=== PATIENT | male | born 1950 | race Caucasian/White ===

== ENCOUNTER → 2017-04-07 | Outpatient (CLI) | payer MEDICARE ==
[~2017-04-07] MED LIST: ASA325 MG PO; CENTRUM MEN'S1 EACH PO; LIPITOR DPS10 MG PO; MILK OF MAGNESI10 ML PO; MIRALAX PACKET17 GM PO; MOBIC15 MG PO; OXY IR DPS5 MG PO; PROTONIX40 MG PO; SENOKOT DPS8.6 MG PO; TYLENOL ARTHRI650 MG PO; ULTRAM DPS50 MG PO
== END | disposition home or self-care (01) ==
LOC: PTH.S 08:01
DX: Z01.818 Encounter for other preprocedural examination (principal); E78.5 Hyperlipidemia, unspecified

== ENCOUNTER 2017-04-15 05:39 | Inpatient (IN) | payer MEDICARE ==
[~2017-04-15] VITALS: Ht 177.8 cm; Wt 86.0 kg
--- NOTE | ~2017-04-15 | HP ---
ADMIT: 04/15/2017 RM/LOC: W.01 [facility] MR#: [id number] [address] [address] PAN [address] [place] [address] Pre-OP History and Physical SEX: M AGE: 66 : 1950 DATE OF SERVICE: CHIEF COMPLAINT: Hip pain. HISTORY OF PRESENT ILLNESS: The patient is a 66-year-old male with long- standing history of right hip pain. His hips limit his activities. He has failed conservative care, now is being admitted for right total hip arthroplasty. PAST MEDICAL HISTORY: Past medical problems include coronary artery disease. PAST SURGICAL HISTORY: Include knee arthroscopy, tonsillectomy, back surgery. MEDICATIONS: Include: 1. Aspirin. 2. Mobic. 3. Tylenol. 4. Centrum. ALLERGIES: NONE. SOCIAL HISTORY: Denies any significant tobacco or alcohol use. REVIEW OF SYSTEMS: Negative. PHYSICAL EXAMINATION: Healthy-appearing male, walks with severe antalgic gait. He has a fairly stiff right hip. We can internally rotate to 0, externally rotate to 30, flex to 100. Legs are otherwise neurovascularly intact. No back pain. DIAGNOSTIC DATA: X-rays AP and lateral show advanced right hip arthritis. No joint space remaining. IMPRESSION: Advanced right hip degenerative joint disease. PLAN: At this point, he has failed conservative care. Plan on proceeding with a right anterior total hip arthroplasty. He is aware of risk, benefits, and options and agreed to proceed. He has been seen and cleared from a medical standpoint. Siddhartha Sánchez MD/ hesham JOB #: [id number] CC: Siddhartha Sánchez, Attending Physician UNKNOWN, Family Physician
--- NOTE | 2017-04-15 21:16 | OR ---
ADMIT: 04/15/2017 RM/LOC: 518 [facility] MR#: [id number] [address] [address] PAN [address] [place] [address] Operative/Delivery Room Report SEX: M AGE: 66 : 1950 SURGERY DATE: 04/15/2017 SURGEON: Siddhartha Sánchez MD PREOPERATIVE DIAGNOSIS: Right hip degenerative joint disease. POSTOPERATIVE DIAGNOSIS: Right hip degenerative joint disease. PROCEDURES: 1. Right anterior total hip arthroplasty. 2. Application of 2 cables. 3. Intra-articular block. TRUCK DRIVER HEAVY: Iván Fontana PA-C. ANESTHESIA: Spinal. BLOOD LOSS: 1000 mL. COMPLICATION: Calcar fracture. COMPONENTS: 1. A 14-mm standard offset Corail stem. 2. A 60 mm Gription [place] cup. 3. A 36-mm neutral AltrX liner. 4. 8.5 x 36 mm ceramic head. DESCRIPTION OF PROCEDURE: The patient was taken to the operating room and received a spinal anesthetic. The patient was placed on a hand table, perfect AP pelvis was obtained preop templating. At that point, the right hip was prepped and draped in standard fashion. Anterior approach was made. Dissection carried through subcutaneous tissue. We divided the tensor fascia and then retracted tensor posteriorly. We then identified the vastus, identified the lateral circumflex vessels and placed a ligature suture around these and I cauterized them. At that point, we released the rectus off the anterior hip capsule. At that point, we did an anterior capsulotomy revealing the femoral neck. We externally rotated the leg. There is complete capsular release inferiorly, internally rotated the leg and released the capsule off the superior trochanter. At that point, we made a preliminary femoral neck cut based on templating. We were to able to remove the femoral head. We then externally rotated the leg and finished our capsular release inferiorly and then internally rotated the leg and finished it release superiorly. At that point, we exposed the acetabulum, removed the remaining labrum. I did inferior capsular release. We sequentially reamed the acetabulum up to a 59 mm reamer. He was quite oozy throughout the acetabulum just having multiple areas of bleeding bone, so our blood loss was increased from normal. We impacted a 60 mm Gription [place] cup with an excellent press fit. No supplement screws were required. We then placed a 60 mm Gription [place] cup within the acetabulum brought in fluoroscopy, obtained a perfect AP of the hip. Using ADMIT: 04/15/2017 RM/LOC: 518 [facility] MR#: [id number] [id number] [place] [id number] PAN [address] [place] [address] Operative/Delivery Room Report SEX: M AGE: 66 : 1950 fluoroscopy, we put the acetabular component in perfect anteversion and inclination. We had an excellent press-fit, no supplemental screws required. At that point, we placed a 36 mm neutral liner. I did intraarticular block around the acetabulum. At that point, we removed all traction from the leg, placed a bone hook posteriorly, elevated the femur, external rotating the leg. We did a superior caps released off the greater trochanter. Released the piriformis tendon, preserving the internal rotators. At that point, we opened the femur with a [email or web address] cutter broach. I used a [employer] pepper broach to open the proximal femur. We then broached up to a 12 stem. At that point, it is little tight distally. We then reaming up to a 14.5 reamer and eventually placed a 14 mm Corail stem down with excellent press fit. At that point, we used a calcar planer. When we are using the calcar planer, the calcar planer caught on a spike bone on the calcar and ended up fracturing the calcar split distally. At that point, we removed our broach. We did extend our incision distally, had a little bit of vastus off the femur. We placed two cables around the lesser trochanter and calcar. Reapproximating it in an anatomic position with excellent stability. At that point, we replaced the 14 mm broach, reduced the hip with 8.5 head standard offset. At that point, x-rays confirmed excellent reduction of our calcar fracture. Good cable placement. We had appropriate leg length and offset. We then dislocated the hip, removed the trial components. We then impacted the real 14 mm Corail broach with an excellent press fit. The stem was very stable. We then impacted 8.5 x 36 mm ceramic head. Again reduced the hip. It was again found to be stable. AP x- rays confirmed good offset, good leg length, and appropriate fracture reduction. We then did complete our intraarticular block. We then repaired the anterior capsule with #5 Ti-Cron. I repaired the deep fascia with 0 Vicryl, subcutaneous with 2-0 Vicryl, placed a drain deeply. Closed the skin with the Prineo hip wound dressing after subcuticular stitch. He was taken to the recovery room in stable condition. No other complications. Siddhartha Sánchez MD/ hesham JOB #: [id number] CC: Siddhartha Sánchez, Attending Physician Shan Petersen, Family Physician
[2017-04-19] MEDS ORDERED: MOBIC15 MG PO (20:24)
[2017-04-19] MEDS ORDERED: CENTRUM MEN'S1 EACH PO (20:25)
[2017-04-19] MEDS ORDERED: ASA325 MG PO (20:25)
[2017-04-19] MEDS ORDERED: TYLENOL ARTHRI650 MG PO (20:25)
[2017-04-19] MEDS ORDERED: LIPITOR DPS10 MG PO (20:25)
[2017-04-19] MEDS ORDERED: SENOKOT DPS8.6 MG PO (20:26)
[2017-04-19] MEDS ORDERED: PROTONIX40 MG PO (20:26)
[2017-04-19] MEDS ORDERED: MILK OF MAGNESI10 ML PO (20:26)
[2017-04-19] MEDS ORDERED: MIRALAX PACKET17 GM PO (20:26)
[2017-04-19] MEDS ORDERED: OXY IR DPS5 MG PO (20:27)
[2017-04-19] MEDS ORDERED: ULTRAM DPS50 MG PO (20:27)
--- NOTE | 2017-05-07 16:15 | DS ---
ADMIT: 04/15/2017 RM/LOC: 518 [facility] MR#: [id number] [address] [place], [place] [address] PAN [address] [place] [address] General Discharge Summary SEX: M AGE: 66 : 1950 ADMISSION DATE: 04/15/2017 DISCHARGE DATE: 04/17/2017 REASON FOR ADMISSION: Elective right total hip arthroplasty after failing conservative management for osteoarthritis. PREOPERATIVE DIAGNOSIS: Right hip degenerative joint disease. POSTOPERATIVE DIAGNOSIS: Right hip degenerative joint disease. PROCEDURE PERFORMED: Right indirect anterior total hip arthroplasty with application of two cables. ANESTHETIC: Spinal. COMPLICATIONS: Calcar fracture. ESTIMATED BLOOD LOSS: 1000 mL. SURGEON: Siddhartha Sánchez MD. STOCK GRADER: Iván Fontana PA-C ACTIVE MEDICAL PROBLEMS: 1. Osteoarthritis. 2. Coronary artery disease. HOSPITAL COURSE: Pan was admitted on 04/15/2017 for elective right total hip arthroplasty, it was completed successfully from a direct anterior approach by Dr. Sánchez. There was a complication during the case, a fracture of the calcar which required 2 cables to be placed around the proximal femur. These cables were placed successfully and stabilized the fracture nicely. He was made partial weightbearing postoperatively due to that complication. He did have his pain well controlled postoperatively with the use of the intraoperative pain block cocktail as well as oral pain medications. He did participate well with physical therapy with his weightbearing restriction 50%. He had significant blood loss during the case, estimated to be 1000 mL. Upon admission to the medical floor on day of surgery, he did have what was likely a vasovagal hypotensive episode where he became somewhat unresponsive for a brief moment. Blood pressures were measured at 78/48, administered a 1 liter IV LR bolus, and ordered stat hemoglobin. He recovered nicely and was able to communicate, had no further episodes. Hemoglobin came back at 8.3. Aspirin protocol was initiated due to the blood loss for DVT prophylaxis. He was administered 1 unit of packed red cells due to his hypotensive episode. On postoperative day #1, he pulled his drain. Hemoglobin was stable at 8.2, after the 1 unit. He participated well with physical therapy becoming proficient with his home exercise program per anterior total hip arthroplasty protocol. His hospital course was otherwise unremarkable after, and he was stable and ready for discharge on postoperative day #2, with plans for ADMIT: 04/15/2017 RM/LOC: 518 [facility] MR#: [id number] [address] [address] [address] [place] [address] General Discharge Summary SEX: M AGE: 66 : 1950 outpatient home exercise therapy. Discharge hemoglobin was 8.2 and stabilized. DISCHARGE MEDICATIONS: 1. Aspirin 325 mg daily. 2. Lipitor 10 mg daily. 3. MiraLax p.r.n. 4. Protonix 40 mg daily while on aspirin. 5. Senokot b.i.d. p.r.n. 6. Ultram 50 mg, 1 to 2 q.6h daily x3 days, then p.r.n. 7. Tylenol 650 mg q.4h p.r.n. 8. OxyIR 5 mg, 1 to 2 q.4 p.r.n. 9. Milk of Mag p.r.n. DISCHARGE INSTRUCTIONS: Pan will participate in home exercise program per anterior total hip arthroplasty protocol, although he will be 50% weightbearing due to the calcar fracture. He will have weightbearing restriction for approximately four weeks. We will follow up with him in 1 week in the Orthopedic office for recheck and re-x-ray with Dr. Sánchez. Follow up in 2 weeks with wound check and removal of his Prineo dressing. He will follow up with Dr. Petersen in one week for recheck of his hemoglobin and his primary care needs. Iván Fontana PA-C / Siddhartha Sánchez MD / hesham JOB #: [id number] CC: Siddhartha Sánchez MD, Attending Physician Shan Petersen MD, Family Physician
== END 2017-04-17 16:12 | disposition home or self-care (01) | DRG 470 ==
LOC: WOR 05:39 → 5MS 05:39
PROVIDERS: ADMIT Orthopaedic Surgery
PROC: 0SR904A Replacement of Right Hip Joint with Ceramic on Polyethylene Synthetic Substitute, Uncemented, Open Approach (ICD-10-PCS; principal; 2017-04-15)
PROC: 30233N1 Transfusion of Nonautologous Red Blood Cells into Peripheral Vein, Percutaneous Approach (ICD-10-PCS; 2017-04-15)
DX: M16.11 Unilateral primary osteoarthritis, right hip (principal); G60.3 Idiopathic progressive neuropathy; D62 Acute posthemorrhagic anemia; I25.10 Atherosclerotic heart disease of native coronary artery without angina pectoris; E78.5 Hyperlipidemia, unspecified; R00.1 Bradycardia, unspecified; I95.81 Postprocedural hypotension; I73.00 Raynaud's syndrome without gangrene; M48.06 Spinal stenosis, lumbar region; Z87.891 Personal history of nicotine dependence; Z82.49 Family history of ischemic heart disease and other diseases of the circulatory system; Z79.82 Long term (current) use of aspirin